=== PATIENT | female | born 1965 | race African-American/Black ===

== ENCOUNTER 2024-07-16 05:50 | Emergency (ER) | payer OTHER ==
[~2024-07-16] VITALS: Ht 175.3 cm; Wt 72.0 kg
[2024-07-16 05:59] VITALS: O2SAT 98
[2024-07-16] MEDS ORDERED: ACETAMINOPHEN 325MG TABLET PO STA (06:05)
[2024-07-16 07:16] LABS: BASOPHILS % 0.3 % (0.0-2.0); CHLORIDE 108 mEq/L (98-107); EOSINOPHILS % 0.5 % (0.0-5.0); HEMATOCRIT. 42.7 % (36.0-48.0); HEMOGLOBIN. 13.9 g/dL (12.0-16.0); LYMPHOCYTES % 7.8 % (20.0-50.0); MEAN CORPUSCULAR HEMOGLOBIN 31.2 pg (28.0-32.0); MEAN CORPUSCULAR HGB CONC 32.4 g/dL (31.0-37.0); MEAN CORPUSCULAR VOLUME 96.1 fL (81.0-99.0); MEAN PLATELET VOLUME 9.2 fl (7.4-10.4); MONOCYTES % 3.4 % (2.0-8.0); PLATELET 283 x1000/uL (130-400); POTASSIUM 4.5 mEq/L (3.5-5.1); RED BLOOD CELL COUNT 4.44 mill/uL (4.2-5.4); RED CELL DISTRIBUTION WIDTH 14.3 % (11.6-14.6); SODIUM 141 mEq/L (136-145)
[2024-07-16 07:17] LABS: CARBON DIOXIDE 27 mEq/L (21-32)
[2024-07-16 07:18] LABS: CALCIUM 9.5 mg/dL (8.7-10.4)
[2024-07-16 07:22] LABS: CREATININE 0.9 mg/dL (0.6-1.0)
[2024-07-16 07:23] LABS: GLUCOSE 162 mg/dL (70-105)
[2024-07-16 07:24] LABS: ALANINE AMINOTRANSFERASE 17 IU/L (10-49); ALBUMIN 4.4 g/dL (3.2-4.8); ASPARTATE AMINOTRANSFERASE 38 IU/L (<34)
[2024-07-16 07:25] LABS: BILIRUBIN DIRECT 0.1 mg/dL (<=3.0); BILIRUBIN TOTAL 0.5 mg/dL (0.1-1.0); PROTEIN TOTAL 7.6 g/dL (6.0-8.3); UREA NITROGEN BLOOD 7 mg/dL (9-23)
[2024-07-16 07:26] LABS: TROPONIN I HIGH SENSITIVITY < 4 ng/L (3.0-34)
[2024-07-16] MEDS: ONDANSETRON HCL 4MG/2ML INJ IV STA (07:45)
[2024-07-16] MEDS: SODIUM CHLORIDE 0.9% 1,000 ML IV ONE (07:46)
[2024-07-16 07:50] VITALS: TEMP 36.61404
[2024-07-16] MEDS ORDERED: ONDA-239 PO (07:54)
[2024-07-16 08:30] VITALS: BP 174/77; PULSE 50; RESP 20; O2SAT 98
[2024-07-16] MEDS: ACETAMINOPHEN 500MG TABLET PO NR (09:08)
== END 2024-07-16 08:50 | disposition home or self-care (01) ==
LOC: ER 05:50
DX: R11.2 Nausea with vomiting, unspecified (principal); R07.89 Other chest pain
CPT/HCPCS: 80076; 80048; 83690; 85025; 84484; 36415; 71045; 93005; 96361; 96374; 99285; J2405; J7030; Z7610 ×4